=== PATIENT | female | born 1950 | race Caucasian/White ===

== ENCOUNTER → 2022-01-14 | Outpatient (CLI) | payer MEDICARE, SELFPAY | END | disposition home or self-care (01) | LOC: LABSPEC 16:38 | PROVIDERS: Referring Provider Urology; Visit Provider Urology | DX: R32 Unspecified urinary incontinence (principal) | CPT/HCPCS: 87077; 87086; 87088; 87186 ==

== ENCOUNTER → 2022-03-20 | Outpatient (CLI) | payer MEDICARE, SELFPAY | END | disposition home or self-care (01) | LOC: LABSPEC 16:42 | PROVIDERS: Visit Provider Urology | DX: R31.9 Hematuria, unspecified (principal) | CPT/HCPCS: 87077; 87086; 87088; 87186 ==

== ENCOUNTER → 2022-12-09 | Outpatient (CLI) | payer MEDICARE, SELFPAY | END | disposition home or self-care (01) | LOC: LABSPEC 16:45 | PROVIDERS: Referring Provider Urology; Visit Provider Urology | DX: R31.0 Gross hematuria (principal) | CPT/HCPCS: 87086; 87088 ==

== ENCOUNTER → 2023-01-20 | Outpatient (CLI) | payer MEDICARE, SELFPAY | END | disposition home or self-care (01) | LOC: LABSPEC 15:24 | PROVIDERS: Referring Provider Urology; Visit Provider Urology | DX: R31.0 Gross hematuria (principal) | CPT/HCPCS: 87086; 87088 ==

== ENCOUNTER 2023-07-31 12:38 | Day surgery (SDC) | payer MEDICARE, SELFPAY ==
--- NOTE | 2023-07-30 14:58 | SUR.PREOP ---
pt called b/c she had questions about her DM and blood sugars- discussed a plan with pt and she is ok with this. aware to come to hospital early if need be and not to eat any solid food. she voices understanding told she can have clear liquids up to 2 hours prior to arrival time
[2023-07-31] VITALS (7 sets, daily range): BP systolic 137–143; BP diastolic 47–53; PULSE 65–78; RESP 16–18; TEMP 36.1–36.5; O2SAT 91–100; BMI 34.0
[2023-07-31] MEDS: Lactated Ringers 1,000 ML 15 ML IV (13:22)
[2023-07-31 13:52] LABS: Bedside Glucose 126 mg/dL (74-106)
--- NOTE | 2023-07-31 15:23 | HP.PCM_ITS ---
HPI - General General Date of Admission: 07/31/23 Chief Complaint: Frequency and urgency of urination HPI Narrative GIOVANNA KAYE, is a 73 F who presents for staged 1 and stage II Axonics InterStim therapy implant [facility] Medical History (Updated 07/24/23 @ 09:00 by Katie Rajan) Anxiety Back pain Bladder disease CAD (coronary artery disease) Cardiology follow-up encounter COPD (chronic obstructive pulmonary disease) CPAP (continuous positive airway pressure) dependence Depression Diabetes Dietary restriction DVT (deep venous thrombosis) High cholesterol History of anal lesion History of IBS Hypertension Post-menopausal Smoker Wears glasses Home Medications amlodipine 5 mg tablet 5 mg PO DAILY 07/24/23 [History Last Taken 07/31/23] aspirin 81 mg capsule 81 mg PO DAILY 07/24/23 [History Last Taken 07/24/23] buspirone 7.5 mg tablet 7.5 mg PO BID 07/24/23 [History Last Taken 07/31/23] calcium 600 mg capsule 600 mg PO DAILY 07/24/23 [History Last Taken 07/30/23] clopidogrel 75 mg tablet 75 mg PO DAILY 07/24/23 [History Last Taken 07/24/23] coenzyme Q10 100 mg capsule (Co Q-10) 200 mg PO DAILY 07/24/23 [History Last Taken 07/30/23] docusate sodium 100 mg capsule (Colace) 100 mg PO DAILY 07/24/23 [History Last Taken 07/30/23] empagliflozin 25 mg tablet (Jardiance) 25 mg PO DAILY 07/24/23 [History Last Taken 07/30/23] glimepiride 4 mg tablet 4 mg PO DAILY 07/24/23 [History Last Taken 07/30/23] liraglutide 0.6 mg/0.1 mL (18 mg/3 mL) subcutaneous pen injector (Victoza 3-Laureano) 0.6 mg subcut DAILY 07/24/23 [History Last Taken 07/30/23] lisinopril 20 mg tablet 20 mg PO DAILY 07/24/23 [History Last Taken 07/31/23] melatonin 10 mg tablet 10 mg PO QHS 07/24/23 [History Last Taken 07/30/23] metoprolol tartrate 25 mg tablet 25 mg PO BID 07/24/23 [History Last Taken 07/31/23] multivitamin (Daily Multi-Vitamin tablet) 1 tab PO DAILY 07/24/23 [History Last Taken 07/30/23] rosuvastatin 40 mg tablet 40 mg PO DAILY 07/24/23 [History Last Taken 07/30/23] umeclidinium 62.5 mcg-vilanterol 25 mcg/actuation powdr for inhalation (Anoro Ellipta) 1 inh inhalation QHS 07/24/23 [History Last Taken 07/24/23] cephalexin 500 mg capsule 500 mg PO TID #15 caps 07/31/23 [Rx Last Taken Unknown] Allergy/AdvReac Type Severity Reaction Status Date / Time acetaminophen [From Vicodin] AdvReac Intermediate Nausea/Vom/ Verified 07/24/23 08:31 Diarrhea hydrocodone [From Vicodin] AdvReac Intermediate Nausea/Vom/ Verified 07/24/23 08:31 Diarrhea meperidine [From Demerol] AdvReac Intermediate Nausea/Vom/ Verified 07/24/23 08:31 Diarrhea oxycodone AdvReac Intermediate Nausea/Vom/ Verified 07/24/23 08:31 Diarrhea Surgical History (Updated 07/24/23 @ 09:00 by Katie Rajan) History of coronary artery stent placement Hx of appendectomy Hx of colonoscopy Hx of left cataract extraction Hx of left knee surgery Hx of right cataract extraction Social History Smoking Status: Current every day smoker tobacco type: cigarettes Vital Signs Vital Signs Vital Signs: 07/31/23 13:25 07/31/23 13:26 Temperature 97.7 F L Temperature Source Temporal Pulse Rate 65 Respiratory Rate 18 Respiratory Pattern Normal Blood Pressure 142/47 H Blood Pressure Mean 78 Blood Pressure Source Monitor Blood Pressure Position Semi-Fowlers Blood Pressure Location Right Arm Pulse Ox 100 Oxygen Delivery Method Room Air Weight Weight: 84.459 kg Body Mass Index (BMI) 34.0 Results Lab / Micro Data Labs: Laboratory Results - last 24 hr 07/31/23 13:02: POC Glucose 126 H
--- NOTE | 2023-07-31 15:23 | DCINST_ITS ---
Discharge Instructions Diet Discharge Diet: No restrictions Activity Discharge Activity: Return to Normal Activity and May Not Drive (while taking narcotic pain medications.) Dressing / Incision Call your doctor if you observe: Fever of 101 or Higher Cleanse incision/area with: Soap & Water and Normal Saline Additional Dressing/Incision Instructions:: ok to shower but no baths or soaking in bath Follow Up Care Please Follow Up With: Teddy Del Angel MD When: Call [phone] for an appointment Test Results: Test results from this visit will be discussed in further detail at your follow- up appointment, if applicable. Discharge Plan Admission Primary Reason for Your Visit: Axonics implant Attending Provider: Teddy Del Angel Primary Care Provider: Care Physician,Jenni Primary Discharge Orders/Prescriptions Prescriptions: New cephalexin 500 mg capsule 500 mg PO TID Qty: 15 0RF Continued Victoza 3-Laureano 0.6 mg/0.1 mL (18 mg/3 mL) pen injector 0.6 mg SUBCUT DAILY Patient Comments: INJECT 1.8 MG ONCE DAILY 9 PENS FOR 90 DAY SUPPLY amlodipine 5 mg tablet 5 mg PO DAILY Patient Comments: TAKE 1 TABLET BY MOUTH EVERY DAY calcium 600 mg capsule 600 mg PO DAILY Jardiance 25 mg tablet 25 mg PO DAILY Patient Comments: TAKE 1 TABLET BY MOUTH EVERY DAY IN THE MORNING rosuvastatin 40 mg tablet 40 mg PO DAILY Patient Comments: TAKE 1 TABLET BY MOUTH EVERY DAY lisinopril 20 mg tablet 20 mg PO DAILY Patient Comments: TAKE 1 TABLET BY MOUTH EVERY DAY metoprolol tartrate 25 mg tablet 25 mg PO BID Patient Comments: TAKE 1 TABLET BY MOUTH TWICE A DAY buspirone 7.5 mg tablet 7.5 mg PO BID Patient Comments: TAKE 1 TABLET BY MOUTH TWICE A DAY multivitamin [Daily Multi-Vitamin] Tablet 1 tab PO DAILY aspirin 81 mg capsule 81 mg PO DAILY glimepiride 4 mg tablet 4 mg PO DAILY Patient Comments: TAKE 1/2 TABLET BY MOUTH ONCE DAILY melatonin 10 mg tablet 10 mg PO QHS coenzyme Q10 [Co Q-10] 100 mg capsule 200 mg PO DAILY Anoro Ellipta 62.5-25 mcg/actuation blister with device 1 inh inhalation QHS docusate sodium [Colace] 100 mg capsule 100 mg PO DAILY Held clopidogrel 75 mg tablet 75 mg PO DAILY Hold Instructions: Resume on 08/03/23. Patient Comments: TAKE 1 TABLET BY MOUTH EVERY DAY Referrals / Follow Up: Teddy Del Angel MD [Med Staff - Active Staff] - Care Physician,No Primary [Primary Care Provider] - Disposition Disposition (needs filled in before D/C Order can be placed): Home, Self Care
[2023-07-31] MEDS: Cefazolin 2 GM in 0.9% Normal Saline (100mL Bag) 100 ML IV (15:45)
[2023-07-31] MEDS: Lidocaine 1% /Epi 1:100 (50ml) 50 ML VIAL (16:06)
--- NOTE | 2023-07-31 16:06 | RAD_ITS ---
PROCEDURE: Fluoroscopic guided intraoperative axonic bladder neural modulation procedure DATE OF EXAMINATION: July 31, 2023 INDICATION: Female, 73 years old. Bladder dysfunction PHYSICIAN: Attending urologist FLUOROSCOPY TIME (if supplied): ( 55.2 seconds RADIATION DOSAGE (If Supplied By Facility): CTDIvol = ( ) mGy, DLP = ( 37.27 ) mGycm Technique: Utilizing fluoroscopic guidance bladder neuro modulation procedure was performed. There was a film obtained in the AP and lateral projection. For more complete information recommend correlation with surgical notes RAD/Pelvis 1 or 2 Views IMPRESSION: Fluoroscopic guided axonic intraoperative bladder neural modulation Electronically Signed: Blas Lala MD at 21:32 EST ,
--- NOTE | 2023-07-31 16:48 | PCM.OPRPT ---
Report of Operation Date of Procedure: 07/31/23 Pre-Operative Diagnosis: Frequency and urgency of urination Post-Operative Diagnosis: The same Surgery/Procedure Performed:: Stage I stage II InterStim Axonics implant Description of Surgical Findings:: The patient presents to the operating room for placement of stage I and II therapy. In the preoperative setting she is failed medical management for the patient urge incontinence and severe frequency of urination, a voiding diary was reviewed. The patient understands these is no guarantees that in the future the therapy will keep working to the patient's satisfaction and its always possible and it may need to have a surgical revision, change in implant, possible revision or removal of implant. We also talk about the risks of pain with stimulation, bleeding and infection or any injury to nerves or bony structures and the tailbone area. After reviewing all this with the patient in the preoperative area she signed the consent form and we proceeded with stageI and II therapy implant. Patient was brought back to the operating room and placed supine on the table and then transferred to facedown the table and underwent sedation with comfort hugging a pillow. Patient's lower back was prepped and draped in usual sterile fashion, I then palpated the bony landmarks identify the tailbone the sacrum and the pocket area was identified where the lead front end developer would be implanced and also the lead. Fluoroscopy was brought in to identify the pelvis we identify the spinous processes of the pelvic bone we used a finder needle to lay across the spinous process to the approximate the location of the S3 foramen. I then identified the lateral borders of the foramen using the other spinal needle. Under this the skin was then marked and potential entrances were by approximation and bony landmarks using fluoroscopy. I then infiltrated the skin about 2 cm up above the approximation of the S3 foramen and then used the needle within the stage I InterStim kit to go straight down to the potential S3 foramen spot marching along the sacrum until the needle electrode dropped into what appeared to be the S3 foramen. Under fluoroscopy in AP and lateral veiw I confirmed that I had the lead in the S3 foramen, I then stimulated the needle and had good ron response and had toe flexion but no calf rotation, confirm placement of the lead in the S3 Foremen. I then placed the guide through the needle the stylette was removed and then the needle was removed over the guide an incision was made into the skin and then through the incision incision and over the guide I introduced the sheath I followed the sheath under fluoroscopy until the marker on the sheath was three fourths down from the anterior plate of the sacrum. Once this was in good position then the stylette was removed and through the sheath I then introduced the stage I InterStim stimulator lead, I then checked the lead for stimulation of ron and toe flexion at all 4 sites 0, 1, 2, 3 and had good response with ron and toe flexion and pleased with the placement of the lead. Under fluoroscopy I captured the placement the lead this was documented both in AP and lateral views. I then removed the stylette within the lead and then pulled back in the sheath of the deployed the tines on the lead to secure the lead and the sacrum and the S3 foramen. Another fluoroscopic check was done to make sure no movement of the lead. After this was confirmed then pocket was created in the patient's lateral side where the generator pocket would be placed after the pocket was created in the subcutaneous tissue then using the guide created in the kit the end of the lead was then transferred from the insertion site to the pocket site subcutaneously. Then the generator was opened and I made sure I cleaned the lead completely I attached the lead to the generator use the screwdriver provided in the kit to then secure the bolt secure the lead to the generator prior to doing this again checked the lead 0, 1, 2, 3 and there was still good stimulation at all sites. I then placed the lead into the generator and the generator was put into the pocket that was created. I made sure that the generator was placed with InterStim labeling side up and was oriented appropriately. I then checked for impedance using the rep and had the device checked in the impedance was normal with no abnormal impedance and all leads in all 4-lead sites were programmed and responded normally. The generator was then programmed to ensure good proper stimulation of the InterStim device this was done in the operating room, after complex programming was completed we finished with fluoroscopy I then closed the insertion site with subcuticular stitches and Steri-Strips and bandages and then closed the pocket with subcuticular stitches and Steri-Strips and bandages. The patient's anesthetic was reversed patient was taken back to the recovery room in stable condition and further training and education will be given to the patient regarding how to use the new InterStim therapy. Surgeon: Teddy Del Angel Type of Anesthesia: IV Sedation Estimated Blood Loss (mL): 0 Admit VTE Documentation VTE Present on Admission: No VTE Mechan Device Prophylaxis: SCD's VTE Pharm Prophylaxis ordered?: No
== END 2023-07-31 18:07 | disposition home or self-care (01) ==
LOC: SDC 12:40 → AC 12:43
PROVIDERS: Referring Provider Urology; Visit Provider Urology
PROC: (CPT 64581; principal; 2023-07-31 14:40)
DX: R39.15 Urgency of urination (principal); J44.9 Chronic obstructive pulmonary disease, unspecified; E11.9 Type 2 diabetes mellitus without complications; I25.10 Atherosclerotic heart disease of native coronary artery without angina pectoris; Z79.84 Long term (current) use of oral hypoglycemic drugs; Z79.02 Long term (current) use of antithrombotics/antiplatelets; F17.210 Nicotine dependence, cigarettes, uncomplicated; I10 Essential (primary) hypertension; Z79.82 Long term (current) use of aspirin; E78.00 Pure hypercholesterolemia, unspecified; Z86.718 Personal history of other venous thrombosis and embolism; F41.9 Anxiety disorder, unspecified; Z95.5 Presence of coronary angioplasty implant and graft; Z90.49 Acquired absence of other specified parts of digestive tract
CPT/HCPCS: 64581; 64590; 72170; 76000; 82962; J7120; J2405

== ENCOUNTER → 2024-06-16 | Outpatient (CLI) | payer MEDICARE, SELFPAY | END | disposition home or self-care (01) | PROVIDERS: Referring Provider Nurse Practitioner; Visit Provider Nurse Practitioner | DX: R30.0 Dysuria (principal) | CPT/HCPCS: 87086; 87088 ==